=== PATIENT | female | born 1955 | race Caucasian/White ===

== ENCOUNTER 2023-11-11 20:15 | Outpatient (CLI) | payer MEDICARE, SELFPAY | END 2023-11-11 20:16 | disposition home or self-care (01) | PROVIDERS: PCP Family Medicine; Visit Provider Internal Medicine | DX: G47.33 Obstructive sleep apnea (adult) (pediatric) (principal); R09.02 Hypoxemia; G47.30 Sleep apnea, unspecified | CPT/HCPCS: 95811 ==

== ENCOUNTER 2025-01-31 15:08 | Inpatient (IN) | payer MEDICARE, SELFPAY ==
[2025-01-31] VITALS (30 sets, daily range): BP systolic 140–181; BP diastolic 104–145; PULSE 97–141; RESP 10–22; TEMP 36.5–36.7; O2SAT 90–97
[2025-01-31 16:49] LABS: Hematocrit* 42.8 % (33.0-51.0); Hemoglobin* 13.0 gm/dL (12.0-16.0); Immature Granulocytes Abs Auto 0.02 K/uL (0.00-0.30); Immature Granulocytes Pct Auto 0.2 %; Mean Corpuscular HGB Conc 30 gm/dL (32-36); Mean Corpuscular Hemoglobin 29 pg (26-34); Mean Corpuscular Volume 94 fL (80-100); RDW Coefficient of Variation % 14.4 % (11.5-15.5); Red Blood Count* 4.54 m/uL (4.00-5.20); White Blood Count* 8.08 K/uL (4.50-11.00)
[2025-01-31 16:54] LABS: Lymphocytes Absolute Auto 1.10 K/uL (0.90-2.90); Slide Review Reflex No
[2025-01-31] MEDS: LACTATED RINGERS 1000 ML 1,000 ML IV (16:54)
[2025-01-31 17:04] LABS: Chloride* 100 mmol/L (96-114); Potassium* 4.6 mmol/L (3.6-5.1); Sodium* 140 mmol/L (135-149)
--- NOTE | 2025-01-31 17:04 | ED.GENADULT ---
HPI - General Adult General Date Seen: 01/31/25 Chief complaint: Weakness Stated complaint: Erratic heartrate Time Seen by Provider: 01/31/25 15:52 Source: patient Mode of arrival: ambulatory Limitations: no limitations History of Present Illness HPI narrative: Patient is a 69-year-old female with a history of recurrent AFib, diabetes, hyperthyroidism presenting to the emergency department with AFib. She states she has been having intermittent AFib for several years and has had previous ablation is and multiple cardioversions that just do not stick. She is unsure how long she has been in AFib in states he could be over a year but could also be just the past month when she has been having some chest pressure. She states over the past year her AFib presents more as chest pressure. She was seeing her tripe washer for the symptoms today and he sent her to the emergency department. She states her primary care provider increased her metoprolol from 50 to 100 mg b.i.d. last week. She is on warfarin in states she ran out of her warfarin a little over 3 weeks ago. While she did not take it for a few days she had her INR checked there was 1.3. She was restarted on warfarin and few days later her INR is 1.8 in than 10 days ago it was 2.8. Denies is shortness of breath, lightheadedness, dizziness, weakness, numbness. No other concerns noted at this time. She states her metoprolol Related Data Home Medications ?Medication ?Instructions ?Recorded ?Confirmed atorvastatin 40 mg tablet 40 mg PO DAILY 01/31/25 01/31/25 duloxetine 60 mg capsule,delayed 60 mg PO DAILY 01/31/25 01/31/25 release furosemide 20 mg tablet 20 mg PO DAILY 01/31/25 01/31/25 levothyroxine 100 mcg tablet 100 mcg PO DAILY 01/31/25 01/31/25 metformin 1,000 mg tablet 1,000 mg PO BID 01/31/25 01/31/25 metoprolol succinate 100 mg 100 mg PO BID 01/31/25 01/31/25 tablet,extended release 24 hr metoprolol succinate 50 mg 50 mg PO BID 01/31/25 01/31/25 tablet,extended release 24 hr pantoprazole 40 mg tablet,delayed 40 mg PO DAILY 11/18/25 11/18/25 release warfarin 5 mg tablet 5 mg PO DAILY 01/31/25 01/31/25 Allergies Allergy/AdvReac Type Severity Reaction Status Date / Time nickel Allergy Intermediate Verified 01/31/25 15:22 aspirin Allergy Unknown Verified 01/31/25 15:22 Penicillins Allergy Unknown Verified 01/31/25 15:22 Review of Systems Status of ROS: Reports: 10 or more systems reviewed and unremarkable except as noted in History and below Exam Narrative: Exam Narrative: Const: Well-nourished, Well-developed, in no distress Eyes: PERRL, no conjunctival injection, and symmetrical lids HENT: Atraumatic external nose and ears. Moist mucous membranes. Neck: Symmetric, trachea midline, No thyromegaly. CVS: irregular irregular rhythm, No murmurs or gallops. Peripheral pulses 2+ and equal in all extremities RESP: Unlabored respiratory effort. Clear to auscultation bilaterally. GI: Nontender/Nondistended, No rebound or guarding. MSK:Extremities w/o deformity, Normal Active ROM Skin: Warm, Dry. No rashes or lesions. Neuro: Normal Muscle tone, No focal neurological deficits. Psych: Awake, Alert, & Oriented x3. Appropriate mood and affect. Const: Vital Signs, click to edit/add: Vital Signs - 24 hr 01/31/25 15:16 01/31/25 15:23 01/31/25 15:24 Temperature 98 F Pulse Rate 132 H 137 H Pulse Rate [Right Pulse Oximeter] 123 H Respiratory Rate 18 16 11 L Blood Pressure 174/132 H Blood Pressure [Le ft Upper Arm] 174/132 H Pulse Oximetry 97 96 95 Oxygen Delivery Me od Room Air 01/31/25 15:30 01/31/25 15:42 01/31/25 15:45 Temperature Pulse Rate 128 H 141 H 136 H Pulse Rate [Right Pulse Oximeter] Respiratory Rate 22 20 18 Blood Pressure 158/118 H Blood Pressure [Le ft Upper Arm] Pulse Oximetry 94 92 94 Oxygen Delivery Me thod 01/31/25 16:00 01/31/25 16:02 01/31/25 16:15 Temperature Pulse Rate 131 H 127 H 132 H Pulse Rate [Right Pulse Oximeter] Respiratory Rate 13 13 17 Blood Pressure 149/128 H Blood Pressure [Le ft Upper Arm] Pulse Oximetry 96 93 [facility] 01/[facility]/25 16:31 01/31/25 16:45 01/31/25 17:00 Temperature Pulse Rate Pulse Rate [Right Pulse Oximeter] Respiratory Rate 10 L 22 19 Blood Pressure Blood Pressure [Le ft Upper Arm] Pulse Oximetry Oxygen Delivery Me thod 01/31/25 17:02 01/31/25 17:15 01/31/25 17:22 Temperature Pulse Rate Pulse Rate [Right Pulse Oximeter] Respiratory Rate 19 17 22 Blood Pressure 163/128 H 176/131 H Blood Pressure [Le ft Upper Arm] Pulse Oximetry Oxygen Delivery Me thod 01/31/25 17:30 01/31/25 17:42 01/31/25 17:45 Temperature Pulse Rate Pulse Rate [Right Pulse Oximeter] Respiratory Rate 19 13 18 Blood Pressure 181/126 H Blood Pressure [Le ft Upper Arm] Pulse Oximetry 94 Oxygen Delivery Me thod 01/31/25 18:00 01/31/25 18:01 Temperature Pulse Rate Pulse Rate [Right Pulse Oximeter] Respiratory Rate 20 22 Blood Pressure 169/145 H Blood Pressure [Le ft Upper Arm] Pulse Oximetry Oxygen Delivery Me od Course Vital Signs Vital signs: Initial Vital Signs Temperature 98 F 01/31/25 15:16 Temperature Source Temporal Artery Scan 01/31/25 15:16 Pulse Rate 123 H 01/31/25 15:16 Pulse Rhythm Regular, Irregular 01/31/25 15:16 Pulse Strength 3+ Normal 01/31/25 15:16 Respiratory Rate 18 01/31/25 15:16 Blood Pressure 174/132 H 01/31/25 15:16 Blood Pressure Mean 146 H 01/31/25 15:16 Blood Pressure Position Semi-Fowlers 01/31/25 15:16 Pulse Oximetry 97 01/31/25 15:16 Oxygen Delivery Method Room Air 01/31/25 15:16 Vital Signs Temperature 98 F 01/31/25 15:16 Pulse Rate 123 H 01/31/25 15:16 Respiratory Rate 18 01/31/25 15:16 Blood Pressure 174/132 H 01/31/25 15:16 Pulse Oximetry 97 01/31/25 15:16 Oxygen Delivery Method Room Air 01/31/25 15:16 Temperature 98 F 01/31/25 15:16 Pulse Rate 132 H 01/31/25 16:15 Respiratory Rate 22 01/31/25 18:01 Blood Pressure 169/145 H 01/31/25 18:01 Pulse Oximetry 94 01/31/25 17:30 Oxygen Delivery Method Room Air 01/31/25 15:16 Medications Administered Medications: Discontinued Medications Generic Name Dose Route Start Last Admin Trade Name Nallely PRN Reason Stop Dose Admin Lactated Ringer's 1,000 mls @ 1,000 mls/hr 01/31/25 16:21 01/31/25 17:58 Lactated Ringers 1000 Ml IV 01/31/25 17:20 Infused .Q1H ONE Infusion Labetalol HCl 5 mg 01/31/25 17:24 01/31/25 17:31 Labetalol Hcl 5 Mg/Ml Inj IVP 01/31/25 17:25 5 mg ONCE ONE Administration Magnesium Oxide 400 mg 01/31/25 17:15 01/31/25 17:31 Magnesium Oxide 400 Mg Tablet PO 01/31/25 17:16 400 mg ONCE ONE Administration Medical Decision Making MDM Narrative Medical decision making narrative: Patient is a 69-year-old female presenting to emergency department AFib with RVR. Her blood pressure is elevated and he is stable at this time. Unsure how long the symptoms have been going on for about so likely could have been least a month. Will check magnesium, CBC, BMP along with her INR and a TSH. Will give a L of fluids in the meantime to see if hydration helps. Lab work returns with potassium of 4.6. Her magnesium is 1.8. Is recommend to be above to for cardiac arrhythmias. Magnesium replenished. Tried doing a dose of Lopressor which did not help with her heart rate. Her INR is 1.56. She continues to be stable in the emergency department. TSH within normal limits. I spoke to Dr. Wilcox of [facility]. He recommends doing digoxin 500 mcg once followed by a night to 150 mcg of the 6 hour tika and then another 250 mcg at the 12 hour tika for a total of 1000 mcg over 12 hours. Considering she is still in AFib with RVR we will admit her to the hospitalist service. Lab Data Labs: Lab Results 01/31/25 01/31/25 Range/Units 16:33 17:05 WBC 8.08 (4.50-11.00) K/uL RBC 4.54 (4.00-5.20) m/uL Hgb 13.0 (12.0-16.0) gm/dL Hct 42.8 (33.0-51.0) % MCV 94 (80-100) fL MCH 29 (26-34) pg MCHC 30 L (32-36) gm/dL RDW Coeff of Liliana 14.4 (11.5-15.5) % Plt Count 377 (140-440) K/uL Neut % (Auto) 75.4 H (42.0-72.0) % Lymph % (Auto) 14.2 L (20-44) % [place] % (Auto) 7.5 (0.0-11.0) % Eos % (Auto) 2.2 (0.0-7.0) % Baso % (Auto) 0.5 (0.0-3.0) % Neut # (Auto) 6.10 (1.7-7.0) K/uL Lymph # (Auto) 1.10 (0.90-2.90) K/uL [place] # (Auto) 0.60 (0.00-0.90) K/UL Eos # (Auto) 0.18 (0.00-0.50) K/uL Baso # (Auto) 0.04 (0.00-0.30) K/uL Abs Immat Gran (auto) 0.02 (0.00-0.30) K/uL Imm/Tot Granulo (auto) 0.2 % INR 1.56 H (0.91-1.10) Sodium 140 (135-149) mmol/L Potassium 4.6 (3.6-5.1) mmol/L Chloride 100 (96-114) mmol/L Carbon Dioxide 28 (20-32) mmol/L Anion Gap 12 (7-15) mEq/L BUN 23 (7-30) mg/dL Creatinine 1.0 (0.5-1.5) mg/dL Estimated GFR 61 ml/min Glucose 126 H (60-115) mg/dL Calcium 10.8 H (8.4-10.6) mg/dL Magnesium 1.8 (1.5-2.6) mg/dL TSH 1.810 (0.270-4.200) uIU/mL Lab Acknowledgement Test Added ECG Data Attestation: I personally reviewed and interpreted this ECG as follows: Prior ECG tracings: not available for review Interpretation: Atrial fibrillation with a rate of 142 beats per minute, normal axis, normal QTC, normal QRS, no ST or T-wave abnormalities. Critical Care Time Critical Care Time Critical Care Time: Yes Attestation: The patient required my highest level preparedness to intervene emergently and I personally spent this critical care time directly and personally managing the patient. This critical care time included: Obtaining a history; Examining the patient; Pulse oximetry; Ordering and reviewing of studies; Arranging urgent treatment with development of a management plan; Evaluation of patients response to treatment; Frequent reassessment discussions with other providers. This critical care time was performed to assess and manage the high probability of imminent life-threatening deterioration that could result in multiorgan failure. It was exclusive of separate billable procedures and treating other patients and teaching time. Total Critical Care Time in Minutes: 36 Discharge Plan Discharge Clinical Impression: Atrial fibrillation with rapid ventricular response Patient Disposition: Admitted As Inpatient Condition: Stable
[2025-01-31 17:07] LABS: Anion Gap 12 mEq/L (7-15); Blood Urea Nitrogen* 23 mg/dL (7-30); Calcium* 10.8 mg/dL (8.4-10.6); Carbon Dioxide* 28 mmol/L (20-32); Creatinine* 1.0 mg/dL (0.5-1.5); Estimated Glomerular Filt Rate 61 ml/min; Glucose* 126 mg/dL (60-115); INR 1.56 (0.91-1.10); Prothrombin Time 19.7 Seconds
[2025-01-31] MEDS: LABETALOL HCL 5 MG/ML inj IVP (17:31)
[2025-01-31] MEDS: MAGNESIUM OXIDE 400 MG TABLET PO ×2 (17:31→20:33)
[2025-01-31 17:50] LABS: TSH With Reflex to FT4* 1.810 uIU/mL (0.270-4.200)
[2025-01-31] MEDS: DIGOXIN 250 MCG/ML inj 500 MCG IV (19:01)
[2025-01-31] MEDS: WARFARIN 5 MG TABLET 7.5 MG PO (20:30)
[2025-01-31] MEDS: METFORMIN 1,000 MG TABLET 1000 MG PO (20:34)
[2025-01-31] MEDS: VALSARTAN 80 MG TABLET PO (20:34)
[2025-01-31] MEDS: DULOXETINE 30 MG CAPSULE DR 60 MG PO (20:34)
[2025-01-31] MEDS: METOPROLOL SUCCINATE (XL) 100 MG TAB PO (20:34)
[2025-01-31] MEDS: MELATONIN 3 MG TABLET 9 MG PO (20:35)
--- NOTE | 2025-01-31 20:53 | CRLHL7_ITS ---
For Patients: As a result of the Cures Act, medical imaging exams and procedure reports are released immediately into your electronic medical record. You may view this report before your referring provider. If you have questions, please contact your health care provider. INDICATION: Atrial fibrillation with rapid ventricular response, dyspnea TECHNIQUE: Chest radiograph 2 views COMPARISON: None FINDINGS: The sensitivity and specificity of the exam are moderately limited by the patient`s body habitus. Mediastinum: The central pulmonary arteries are near the upper limits of normal in size. Mild to moderate cardiomegaly is noted. Lung: Both lungs are unremarkable in appearance with small lung volumes. No sign of pleural effusion seen. No pneumothorax is identified. Bone and Soft tissue: Unremarkable for age. IMPRESSION: 1. Mild to moderate cardiomegaly is noted. Dictated by Emeka Alejandra MD @ 01/31/2025 10:19:15 PM Dictated by: Emeka Alejandra MD @ 01/31/2025 22:19:19 (Electronically Signed)
[2025-01-31 20:57] LABS: NT Pro B Type NatriureticPept* 9460 pg/mL (See Note)
--- NOTE | 2025-01-31 21:49 | PM.IMHP1 ---
Assessment and Plan Assessment and plan (1) Atrial fibrillation with rapid ventricular response: Status: Acute (2) Hypertension: Problem comment: Significantly elevated blood pressure today. Status: Acute (3) Obstructive sleep apnea hypopnea, severe: Problem comment: Intolerant of CPAP Status: Acute (4) Inadequate anticoagulation: Problem comment: Recently has had subtherapeutic INR on warfarin 5 mg daily Status: Acute (5) Cardiomyopathy: Problem comment: Obtain echocardiogram. Previously preserved ejection fraction. For with prolonged tachycardia may have reduction in ejection fraction. Mild volume overload clinically today Status: Acute Plan 69-year-old female with AFib with RVR. She has been failing outpatient management earlier with ablation and cardioversion and now inadequate rate control with increase metoprolol. Will add in digoxin to metoprolol. Adjust dose of warfarin to optimize stroke prophylaxis. Obtain echo. Continue to monitor and manage heart disease based on clinical course and echocardiogram. Total Time Spent Total Time Spent: Total time spent today is 85 minutes in reviewing outside records, coordination of care and discussing with patient ongoing management of AFib with RVR. Hospitalist- H&P: HPI History of Present Illness Date Seen: 01/31/25 Chief complaint: Erratic heartrate Narrative: Phoebe Farrar is a 69 year old female admitted to the hospital with gradually worsening dyspnea and AFib with RVR. She has a history of paroxysmal AFib. She has had multiple previous failed cardioversions and underwent ablation in November 2023. For at least a month her heart rate has been elevated. Month ago she was at the dentist's office and she thinks that her heart rate was in the 130s at that time. She saw her primary care doctor 4 days ago and had a heart rate of 120. At that time her metoprolol was increased from 50 b.i.d. to 100 b.i.d.. She notes along with this that she has had worsening exertional dyspnea. She has not had chest pain. She cannot feel her racing heart. She does not check her pulse at home. She is on warfarin for stroke prophylaxis. She is unable to take apixaban due to its cost. Her INR has been below the therapeutic range for much of the last 1-2 months. She reports she does reliably remember her medicines though she may have for gotten her warfarin last night. She has not had a fever or other recent illness. Review of Systems Narrative: She reports feeling well except as noted above Medical Decision Making Medical Decision Making Has patient completed a Health Care Directive: Yes [facility] Medical History (Updated 01/31/25 @ 22:30 by Carlos Peace MD) Cardiomyopathy ?I42.9 - Cardiomyopathy, unspecified (ICD-10) Inadequate anticoagulation ?Z51.81 - Encounter for therapeutic drug level monitoring (ICD-10) ?Z79.01 - detention (current) use of anticoagulants (ICD-10) Depression ?F32.A - Depression, unspecified (ICD-10) Diabetes mellitus type 2, controlled ?E11.9 - Type 2 diabetes mellitus without complications (ICD-10) IPMN (intraductal papillary mucinous neoplasm) ?D49.0 - Neoplasm of unspecified behavior of digestive system (ICD-10) Chronic rhinitis ?J31.0 - Chronic rhinitis (ICD-10) Gastroesophageal reflux ?K21.9 - Gastro-esophageal reflux disease without esophagitis (ICD-10) Hypothyroidism ?E03.9 - Hypothyroidism, unspecified (ICD-10) Obstructive sleep apnea hypopnea, severe ?G47.33 - Obstructive sleep apnea (adult) (pediatric) (ICD-10) Obesity ?E66.9 - Obesity, unspecified (ICD-10) Hyperlipidemia ?E78.5 - Hyperlipidemia, unspecified (ICD-10) Irritable bowel syndrome ?K58.9 - Irritable bowel syndrome, unspecified (ICD-10) Hypertension ?I10 - Essential (primary) hypertension (ICD-10) Surgical History (Updated 01/31/25 @ 22:22 by Carlos Peace MD) History of carpal tunnel release of both wrists ?Z98.890 - Other specified postprocedural states (ICD-10) History of colonoscopy ?Z98.890 - Other specified postprocedural states (ICD-10) History of tonsillectomy ?Z90.89 - Acquired absence of other organs (ICD-10) S/P ablation of atrial fibrillation ?Z98.890 - Other specified postprocedural states (ICD-10) ?Z86.79 - Personal history of other diseases of the circulatory system (ICD-10) Family History (Updated 01/31/25 @ 22:23 by Carlos Peace MD) Mother Breast cancer Heart disease Diabetes High blood pressure Father Prostate cancer Diabetes High blood pressure Brother Diabetes Social History (Updated 01/31/25 @ 22:24 by Carlos Peace MD) Narrative: She lives in her own home in [facility] this. She has a friend, Lynne Block, who lives in the same house with her. Lynne is healthcare power of consumer attorney. Code status is DNR. She does not smoke. She does not drink alcohol. What is your current living situation?: I presently have a place to live Problems where you live: no known problems Problems where you live details: NA In the past 12 months, utilities in danger of being shut off: no In past 12 months, lack of transportation kept you from medical appts, meetings, work, or getting things needed for daily living: no In the past 12 mos, have been you worried that your food would run out before you had money to buy more?: never true In the past 12 mos, the food you bought just didn't last and you didn't have money to buy more?: never true Highest level of school completed/degree received: Associate degree: occupational, technical, vocational program Smoking Status: Never smoker Second hand tobacco smoke exposure: No How often do you have a drink containing alcohol: never AUDIT-C Alcohol total score: 0 Non-prescribed substance use: denies use How often does anyone, including family, friends and others, physically hurt you: never How often does anyone, including family, friends and others, insult or talk down to you: never How often does anyone, including family, friends and others, threaten you with harm: never How often does anyone, including family, friends and others, scream or curse at you: never service: No Meds Home Medications and Allergies Home Medications ?Medication ?Instructions ?Recorded ?Confirmed ?Type atorvastatin 40 mg tablet 40 mg PO DAILY 01/31/25 01/31/25 History duloxetine 60 mg capsule,delayed 60 mg PO DAILY 01/31/25 01/31/25 History release furosemide 20 mg tablet 20 mg PO DAILY 01/31/25 01/31/25 History levothyroxine 100 mcg tablet 100 mcg PO DAILY 01/31/25 01/31/25 History metformin 1,000 mg tablet 1,000 mg PO BID 01/31/25 01/31/25 History metoprolol succinate 100 mg 100 mg PO BID 01/31/25 01/31/25 History tablet,extended release 24 hr metoprolol succinate 50 mg 50 mg PO BID 01/31/25 01/31/25 History tablet,extended release 24 hr pantoprazole 40 mg tablet,delayed 40 mg PO DAILY 01/31/25 01/31/25 History release warfarin 5 mg tablet 5 mg PO DAILY 01/31/25 01/31/25 History Allergies Allergy/AdvReac Type Severity Reaction Status Date / Time nickel Allergy Intermediate Verified 01/31/25 15:22 aspirin Allergy Unknown Verified 01/31/25 15:22 Penicillins Allergy Unknown Verified 01/31/25 15:22 Exam Narrative: Exam Narrative: She is alert and appears in no distress. Eyes normal. Oropharynx with very small airway. No facial asymmetry. Neck is supple without mass or adenopathy. No jugular venous distension. Respirations are clear to auscultation with a rare basilar crackle. Cardiovascular: S1, S2, irregular tachycardia. Abdomen is soft. Bowel sounds are present there is no mass. External genitalia normal. Extremities with 1+ edema bilaterally. Intact pedal pulses. She moves all 4 extremities well. No rash. Const: Vital Signs, click to edit/add: Vital Signs - 24 hr 01/31/25 15:16 01/31/25 15:23 01/31/25 15:24 Temperature 98 F Pulse Rate 132 H 137 H Pulse Rate [Right Pulse Oximeter] 123 H Pulse Rate [Right Radial] Respiratory Rate 18 16 11 L Blood Pressure 174/132 H Blood Pressure [Le ft Upper Arm] 174/132 H Blood Pressure [Ri ght Arm] Pulse Oximetry 97 96 95 Oxygen Delivery Me thod Room Air 01/31/25 15:30 01/31/25 15:42 01/31/25 15:45 Temperature Pulse Rate 128 H 141 H 136 H Pulse Rate [Right Pulse Oximeter] Pulse Rate [Right Radial] Respiratory Rate 22 20 18 Blood Pressure 158/118 H Blood Pressure [Le ft Upper Arm] Blood Pressure [Ri ght Arm] Pulse Oximetry 94 92 94 Oxygen Delivery Me thod 01/31/25 16:00 01/31/25 16:02 01/31/25 16:15 Temperature Pulse Rate 131 H 127 H 132 H Pulse Rate [Right Pulse Oximeter] Pulse Rate [Right Radial] Respiratory Rate 13 13 17 Blood Pressure 149/128 H Blood Pressure [Le ft Upper Arm] Blood Pressure [Ri ght Arm] Pulse Oximetry 96 93 93 Oxygen Delivery Me thod 01/31/25 16:31 01/31/25 16:45 01/31/25 17:00 Temperature Pulse Rate Pulse Rate [Right Pulse Oximeter] Pulse Rate [Right Radial] Respiratory Rate 10 L 22 19 Blood Pressure Blood Pressure [Le ft Upper Arm] Blood Pressure [Ri ght Arm] Pulse Oximetry Oxygen Delivery Me thod 01/31/25 17:02 01/31/25 17:15 01/31/25 17:22 Temperature Pulse Rate Pulse Rate [Right Pulse Oximeter] Pulse Rate [Right Radial] Respiratory Rate 19 17 22 Blood Pressure 163/128 H 176/131 H Blood Pressure [Le ft Upper Arm] Blood Pressure [Ri ght Arm] Pulse Oximetry Oxygen Delivery Me thod 01/31/25 17:30 01/31/25 17:42 01/31/25 17:45 Temperature Pulse Rate Pulse Rate [Right Pulse Oximeter] Pulse Rate [Right Radial] Respiratory Rate 19 13 18 Blood Pressure 181/126 H Blood Pressure [Le ft Upper Arm] Blood Pressure [Ri ght Arm] Pulse Oximetry 94 Oxygen Delivery Me thod 01/31/25 18:00 01/31/25 18:01 01/31/25 18:02 Temperature Pulse Rate Pulse Rate [Right Pulse Oximeter] Pulse Rate [Right Radial] Respiratory Rate 20 22 19 Blood Pressure 169/145 H Blood Pressure [Le ft Upper Arm] Blood Pressure [Ri ght Arm] Pulse Oximetry Oxygen Delivery Me thod 01/31/25 18:15 01/31/25 18:23 01/31/25 19:01 Temperature Pulse Rate 140 H Pulse Rate [Right Pulse Oximeter] Pulse Rate [Right Radial] Respiratory Rate 17 18 Blood Pressure 158/125 H Blood Pressure [Le ft Upper Arm] Blood Pressure [Ri ght Arm] Pulse Oximetry 94 Oxygen Delivery Me thod 01/31/25 19:49 01/31/25 19:50 01/31/25 20:00 Temperature 98.1 F 98.1 F Pulse Rate Pulse Rate [Right Pulse Oximeter] Pulse Rate [Right Radial] 120 H 120 H Respiratory Rate 16 16 16 Blood Pressure Blood Pressure [Le ft Upper Arm] Blood Pressure [Ri ght Arm] 152/112 H 152/112 H Pulse Oximetry 93 93 93 Oxygen Delivery Me thod Room Air Room Air Room Air Documenting provider has reviewed patient's vital signs: yes Hospitalist - H&P: Result Labs Labs: Short CBC 01/31/25 Range/Units 16:33 WBC 8.08 (4.50-11.00) K/uL Hgb 13.0 (12.0-16.0) gm/dL Hct 42.8 (33.0-51.0) % Plt Count 377 (140-440) K/uL BMP 01/31/25 16:33 Sodium 140 Potassium 4.6 Chloride 100 Carbon Dioxide 28 BUN 23 Creatinine 1.0 Glucose 126 H Calcium 10.8 H Cardiac Enzymes 01/31/25 Range/Units 16:33 Troponin I 0.01 (0.01-0.04) ng/mL Imaging Chest x-ray: Radiologist's impression: INDICATION: Atrial fibrillation with rapid ventricular response, dyspnea TECHNIQUE: Chest radiograph 2 views COMPARISON: None FINDINGS: The sensitivity and specificity of the exam are moderately limited by the patient`s body habitus. Mediastinum: The central pulmonary arteries are near the upper limits of normal in size. Mild to moderate cardiomegaly is noted. Lung: Both lungs are unremarkable in appearance with small lung volumes. No sign of pleural effusion seen. No pneumothorax is identified. Bone and Soft tissue: Unremarkable for age. IMPRESSION: 1. Mild to moderate cardiomegaly is noted.
[2025-02-01] VITALS (10 sets, daily range): BP systolic 165–185; BP diastolic 95–120; PULSE 75–107; RESP 18; TEMP 36.2–36.9; O2SAT 91–97
[2025-02-01] MEDS: DIGOXIN 250 MCG/ML inj IV (00:45)
--- NOTE | 2025-02-01 04:17 | PC.NURSE ---
Pt rested well this night. Ambulating IND. HR came down below 100. BP remains elevated. Pt no longer SOB with exertion.
[2025-02-01] MEDS: LEVOTHYROXINE 100 MCG TABLET PO (06:03)
[2025-02-01] MEDS: OMEPRAZOLE 20 MG CAPSULE DR PO ×2 (06:04→08:38)
[2025-02-01 06:37] LABS: Chloride* 105 mmol/L (96-114); Potassium* 4.4 mmol/L (3.6-5.1); Sodium* 138 mmol/L (135-149)
[2025-02-01 06:40] LABS: Anion Gap 5 mEq/L (7-15); Blood Urea Nitrogen* 23 mg/dL (7-30); Carbon Dioxide* 28 mmol/L (20-32); Creatinine* 1.0 mg/dL (0.5-1.5); Estimated Glomerular Filt Rate 61 ml/min
[2025-02-01 06:41] LABS: Calcium* 10.1 mg/dL (8.4-10.6); Glucose* 122 mg/dL (60-115)
[2025-02-01 07:08] LABS: INR 1.50 (0.91-1.10); Prothrombin Time 19.1 Seconds
[2025-02-01] MEDS: METFORMIN 1,000 MG TABLET 1000 MG PO ×2 (08:35→21:00)
[2025-02-01] MEDS: ATORVASTATIN CALCIUM 40 MG TABLET PO (08:35)
[2025-02-01] MEDS: METOPROLOL SUCCINATE (XL) 100 MG TAB PO ×2 (08:35→21:00)
[2025-02-01] MEDS: SPIRONOLACTONE 25 MG TABLET PO (08:36)
[2025-02-01] MEDS: DIGOXIN 250 MCG TABLET PO (08:36)
[2025-02-01] MEDS: SODIUM CHLORIDE 0.9 % (FLUSH) 10 ML SYRINGE 5 ML IVF ×2 (08:38→21:01)
[2025-02-01] MEDS: VALSARTAN 80 MG TABLET PO (08:40)
--- NOTE | 2025-02-01 14:25 | PC.NURSE ---
Pt is doing well today. Pleasant to care for. This morning pt was hypertensive, heart rate was controlled; provider was notified and orders were placed. Blood pressure has been improving throughout the shift. Heart rate remains controlled, 80-90's, continues to be in a-fib. Pt went for a walk in the halls and heart rate was 90-110 during walk. Pt states she feels as though as is at her baseline. Pt denies chest pain, SOB, headache, lightheadedness or dizziness. Pt is tolerating oral intake and ambulating in room independently.
[2025-02-01] MEDS: WARFARIN 5 MG TABLET PO (17:06)
--- NOTE | 2025-02-01 17:23 | P.IMPN_ITS ---
Assessment and Plan Assessment and plan (1) Atrial fibrillation with rapid ventricular response: Problem comment: -rate control with digoxin initiation his brought rate down to less than 100 -continue metoprolol at the increased dose of 100 b.i.d. -continue anticoagulation with warfarin -Zio patch at discharge -follow-up with PCP to ensure rate control and adequate blood pressure control Status: Acute (2) Hypertension: Problem comment: Significantly elevated blood pressure at admission Initiated valsartan 80 mg b.i.d. this was converted to 160 mg q.day on 02/02. Status: Acute (3) Obstructive sleep apnea hypopnea, severe: Problem comment: Intolerant of CPAP Status: Acute (4) Inadequate anticoagulation: Problem comment: Recently has had subtherapeutic INR on warfarin 5 mg daily - pharm D has adj usted her warfarin dosing accordingly Status: Acute (5) Cardiomyopathy: Problem comment: -echo shows EF of 50-55%, concentric LVH. Status: Acute Subjective Date Seen: 02/01/25 Interval history: Daily Progress Note - Hospital Medicine Day #: 2 CC: AFib with RVR 24 HOUR UPDATE: The patient is responded with the digoxin infusion load. Her heart rate did come down under 100. Her blood pressure has been quite elevated. We have been trying different medicines to help bring this down. She has trialed valsartan at 80 mg b.i.d., spironolactone 25 mg daily in addition to an increased dose of metoprolol 100 b.i.d.. Echo this afternoon revealed LVH, concentric. Low normal EF of 50-55% and trace global valvular disease. Her INR continues to be subtherapeutic. We have adjusted her warfarin. Her glucose is 120s. Her chemistries and CBC are unremarkable. Her troponin is undetectable. Her BNP is quite elevated at 9400. He has a normal thyroid. And a normal A1c. Objective: Alert, interactive. Ambulatory. Vitals: see above Lungs: Clear. Cardiac: S1S2. Irregularly irregular. Disposition/Potential discharge - Home with a Zio patch in the morning Today I spent 50 minutes seeing the patient, reviewing Expanse and EPIC notes/diagnostics, discussing the care plan with our care time that includes social work, PT/OT, pharmacy, RT, halfway and documenting my impressions and plan in the medical record. Exam Const: Vital Signs, click to edit/add: Vital Signs - 24 hr 01/31/25 17:30 01/31/25 17:42 01/31/25 17:45 Temperature Pulse Rate Pulse Rate [Right Radial] Respiratory Rate 19 13 18 Blood Pressure 181/126 H Blood Pressure [Ri ght Arm] Pulse Oximetry 94 Oxygen Delivery Me thod 01/31/25 18:00 01/31/25 18:01 01/31/25 18:02 Temperature Pulse Rate Pulse Rate [Right Radial] Respiratory Rate 20 22 19 Blood Pressure 169/145 H Blood Pressure [Ri ght Arm] Pulse Oximetry Oxygen Delivery Me thod 01/31/25 18:15 01/31/25 18:23 01/31/25 19:01 Temperature Pulse Rate 140 H Pulse Rate [Right Radial] Respiratory Rate 17 18 Blood Pressure 158/125 H Blood Pressure [Ri ght Arm] Pulse Oximetry 94 Oxygen Delivery Me thod 01/31/25 19:49 01/31/25 19:50 01/31/25 20:00 Temperature 98.1 F 98.1 F Pulse Rate Pulse Rate [Right Radial] 120 H 120 H Respiratory Rate 16 16 16 Blood Pressure Blood Pressure [Ri ght Arm] 152/112 H 152/112 H Pulse Oximetry 93 93 93 Oxygen Delivery Me thod Room Air Room Air Room Air 01/31/25 22:10 01/31/25 22:15 01/31/25 22:16 Temperature 97.7 F Pulse Rate 106 H Pulse Rate [Right Radial] 97 97 Respiratory Rate 16 16 Blood Pressure Blood Pressure [Ri ght Arm] 140/104 H Pulse Oximetry 90 Oxygen Delivery Me thod Room Air 02/01/25 00:45 02/01/25 01:32 02/01/25 07:00 Temperature 97.9 F Pulse Rate 107 H 75 Pulse Rate [Right Radial] 94 Respiratory Rate 18 Blood Pressure Blood Pressure [Ri ght Arm] 168/119 H Pulse Oximetry 91 Oxygen Delivery Me thod Room Air 02/01/25 07:25 02/01/25 07:35 02/01/25 08:36 Temperature 97.1 F L Pulse Rate 86 Pulse Rate [Right Radial] 90 90 Respiratory Rate 18 18 Blood Pressure Blood Pressure [Ri ght Arm] 185/120 H 171/105 H Pulse Oximetry Oxygen Delivery Me thod 02/01/25 11:00 02/01/25 15:00 02/01/25 15:00 Temperature 97.2 F L 97.6 F Pulse Rate 95 Pulse Rate [Right Radial] 88 89 Respiratory Rate 18 18 Blood Pressure Blood Pressure [Ri ght Arm] 166/95 H 165/111 H Pulse Oximetry 92 92 Oxygen Delivery Me thod Room Air Room Air 02/01/25 15:00 Temperature Pulse Rate Pulse Rate [Right Radial] 89 Respiratory Rate 18 Blood Pressure Blood Pressure [Ri ght Arm] Pulse Oximetry Oxygen Delivery Me thod Labs Labs: Laboratory Results - last 24 hr 01/31/25 01/31/25 02/01/25 16:33 19:48 05:53 INR 1.50 H Sodium 138 Potassium 4.4 Chloride 105 Carbon Dioxide 28 Anion Gap 5 L BUN 23 Creatinine 1.0 Estimated GFR 61 Glucose 122 H Calcium 10.1 Troponin I 0.01 0.01 NT-Pro-B Natriuret Pep 9460 H TSH 1.810 Lab Acknowledgement Test Added 02/01/25 07:23 INR Sodium Potassium Chloride Carbon Dioxide Anion Gap BUN Creatinine Estimated GFR Glucose Calcium Troponin I NT-Pro-B Natriuret Pep TSH Lab Acknowledgement Test Added
[2025-02-01] MEDS: MELATONIN 3 MG TABLET 9 MG PO (21:00)
[2025-02-01] MEDS: DULOXETINE 30 MG CAPSULE DR 60 MG PO (21:01)
[2025-02-01] MEDS: MAGNESIUM OXIDE 400 MG TABLET PO (21:01)
--- NOTE | 2025-02-01 23:02 | PC.NURSE ---
End of Shift: Patient pleasant and cooperative. Afebrile. Denies pain. Tele showing a-fib with heart rate in the 80s-90s. BP remains elevated and MD aware, see vital signs. Up independently. Tolerating regular diet with no nausea.
[2025-02-02 02:04] VITALS: BP 134/87; PULSE 85; RESP 18; TEMP 36.3; O2SAT 97
--- NOTE | 2025-02-02 05:11 | PC.NURSE ---
Patient Independent in room, Tele afib. Patient incontinent of urine, skin care completed, bed and linen changed and barrier cream applied. PIV patent.
[2025-02-02] MEDS: LEVOTHYROXINE 100 MCG TABLET PO (06:48)
[2025-02-02] MEDS: OMEPRAZOLE 20 MG CAPSULE DR 40 MG PO (06:49)
[2025-02-02 07:00] VITALS: BP 161/126; RESP 18; TEMP 36.2; O2SAT 93
[2025-02-02 07:01] LABS: INR 1.63 (0.91-1.10); Prothrombin Time 20.3 Seconds
[2025-02-02 07:31] VITALS: PULSE 73
[2025-02-02] MEDS: DIGOXIN 125 MCG TABLET PO (07:31)
[2025-02-02] MEDS: VALSARTAN 80 MG TABLET 160 MG PO (07:32)
--- NOTE | 2025-02-02 08:49 | PC.NURSE ---
Nursing Care Hours: [id number] Pt dressed and VS taken. HTN both systolic and diastolic. No headache or SOB. Zio patch applied by previous nurse. Emergency Services Dispatcher activated device and reviewed instructions with pt. Reviewed discharge instructions including to make appt for 2 weeks after mailing the zio device and recording BP and pulse numbers. IV removed. Pt wheeled out to friend vehicle in stable condition.
--- NOTE | 2025-02-02 13:19 | PM.DS1 ---
DS: Providers Provider Date Seen: 02/02/25 Date of admission: 01/31/25 18:43 Primary care physician: Jake Diana MD Admitting Clinician: Carlos Peace MD Attending Physician on discharge: [facility] Date of Discharge: 02/02/25 DS: Diagnosis Discharge Diagnosis (1) Atrial fibrillation with rapid ventricular response: Status: Acute Problem details: -rate control with digoxin initiation his brought rate down to less than 100 -continue metoprolol at the increased dose of 100 b.i.d. -continue anticoagulation with warfarin -Zio patch at discharge -follow-up with PCP to ensure rate control and adequate blood pressure control (2) Inadequate anticoagulation: Status: Acute Problem details: Recently has had subtherapeutic INR on warfarin 5 mg daily - pharm D has adjusted her warfarin dosing accordingly (3) Hypertension: Status: Acute Problem details: Significantly elevated blood pressure at admission Changed valsartan 80 mg b.i.d. to 160 mg q.day on 02/02. (4) Cardiomyopathy: Status: Acute Problem details: -echo shows EF of 50-55%, concentric LVH. (5) Obstructive sleep apnea hypopnea, severe: Status: Acute Problem details: Intolerant of CPAP DS: Summary Hospital Course Hospital Course: BRIEF HOSPITAL COURSE: Patient was admitted for 3 days. Synopsis of acute inpatient issues are outlined above. Chronic medical conditions with notable findings outlined above. Eileen Sandhu was admitted for rate control before her chronic are atrial fibrillation. She has been toward cardiac ablation, titration of metoprolol without significant relief. She was admitted on January 31 and had IV digoxin load. This was quite effective. And her rate within 24 hours with down to under 100. Her troponin was negative, her echo was stable. Was quite hypertensive. We continued the metoprolol at the same dose of 100 mg b.i.d., we change the valsartan from 80 b.i.d. to 160 q.day. however she may need further outpatient management. She was discharged with a heart rate of 73. She felt much better. DISCHARGE MEDICATIONS: See Reconciled list - SIGNIFICANT CHANGES: Daily digoxin at 125 mcg daily Valsartan out 160 mg q.a.m. Specific instructions to the patient and follow-up are outlined below. REVIEW OF SYSTEMS No new chest pain or dyspnea Pain controlled No voiding difficulties Tolerating diet challenge PHYSICAL EXAM: CONSTITUTIONAL: Conversive, good historian. A/O. Knows setting and context. GENERAL: Well-developed and above ideal body weight, in no respiratory distress. VITAL SIGNS: see record. HEENT: Sclerae are anicteric. No petechiae. CARDIAC: rhythm is regular. There is no S3 or rub. No harsh murmurs. Extremities show trace edema with symmetrical pulses. PULM: good air entry with no wheeze. NEURO: Speech is fluent. A brief neurologic exam is negative. SKIN: No rashes, petechiae, concerning changes PSYCHIATRIC: Euthymic. DISPOSITION: Home with friends Time spent on discharge 37 minutes. Status at Discharge Functional status at discharge: uses cane/walker Overall status at discharge: patient is progressing back to baseline Time Spent with Patient Time attestation: Total time spent providing and/or coordinating discharge services: Time spent: Greater than 30 minutes Exam Const: Vital Signs, click to edit/add: Vital Signs - 24 hr 02/01/25 15:00 02/01/25 15:00 02/01/25 15:00 Temperature 97.6 F Pulse Rate 95 Pulse Rate [Right Radial] 89 89 Respiratory Rate 18 18 Blood Pressure [Ri ght Arm] 165/111 H Pulse Oximetry 92 Oxygen Delivery Me thod Room Air 02/01/25 19:00 02/01/25 23:00 02/01/25 23:00 Temperature 98.5 F Pulse Rate 95 Pulse Rate [Right Radial] 99 99 Respiratory Rate 18 18 Blood Pressure [Ri ght Arm] 166/116 H Pulse Oximetry 93 Oxygen Delivery Me thod Room Air 02/01/25 23:00 02/02/25 02:04 02/02/25 07:00 Temperature 97.4 F L 97.4 F L 97.2 F L Pulse Rate Pulse Rate [Right Radial] 82 85 Respiratory Rate 18 18 18 Blood Pressure [Ri ght Arm] 167/97 H 134/87 161/126 H Pulse Oximetry 97 97 93 Oxygen Delivery Me thod Room Air Room Air Room Air 02/02/25 07:31 Temperature Pulse Rate 73 Pulse Rate [Right Radial] Respiratory Rate Blood Pressure [Ri ght Arm] Pulse Oximetry Oxygen Delivery Me thod DS: Data Data Completed and Pending Labs on day of discharge: Labs from last 24 hours 02/02/25 06:10 INR 1.63 H Discharge Plan Discharge Disposition: Home, Self-Care Date of Admission: 01/31/25 18:43 Attending Provider on Discharge: Ria Gutierrez Primary Care Provider: Jake Diana Condition: Stable Anticipated Discharge Date/Time: 02/01/25 17:00 Discharge Medications: New digoxin 125 mcg (0.125 mg) Tablet 125 mcg PO DAILY Qty: 30 0RF valsartan 80 mg Tablet 160 mg PO DAILY Qty: 60 0RF Continued atorvastatin 40 mg tablet 40 mg PO DAILY metoprolol succinate 100 mg tablet extended release 24 hr 100 mg PO BID levothyroxine 100 mcg tablet 100 mcg PO DAILY pantoprazole 40 mg tablet,delayed release (DR/EC) 40 mg PO DAILY metformin 1,000 mg tablet 1,000 mg PO BID warfarin 5 mg tablet 5 mg PO DAILY furosemide 20 mg tablet 20 mg PO DAILY duloxetine 60 mg capsule,delayed release(DR/EC) 60 mg PO DAILY Discontinued metoprolol succinate 50 mg tablet extended release 24 hr 50 mg PO BID Discharge Orders: Discharge Order (Routine); Ordered 02/02/25 Ordered By: Carlos Peace Patient Education: Metoprolol (By mouth), Digoxin (By mouth), Warfarin (By mouth), Valsartan (By mouth), A-fib (Atrial Fibrillation) (DC), Chronic Hypertension (DC) Additional Instructions: You will see Dr. Diana in two weeks after your Zio Patch has been returned. Monitor your pulse - Your two meds for the pulse is the higher dose of metoprolol (100mg twice daily) and digoxin (125mcg daily) Your blood pressure is now being treated with Valsartan and Metoprolol. If you can measure once a day and write it down with your pulse for Dr. Diana - that would be great. Activity Level: Activity as Tolerated Discharge Diet: Heart Healthy (2 gm sodium, low fat) Follow Up Appointments: Jake Diana MD [Primary Care Provider, Family Practice] - 02/15/25 11:45 am Referral Note: Forms: [facility] Instructions
== END 2025-02-02 08:00 | disposition home or self-care (01) | DRG 310 ==
LOC: ED 18:19 → MEDSURG 02-01 17:01
PROVIDERS: Family Medicine; Admitting Provider Family Medicine; Emergency Provider Student in an Organized Health Care Education/Training Program; PCP Family Medicine; Visit Provider Family Medicine
DX: I48.91 Unspecified atrial fibrillation (principal); I10 Essential (primary) hypertension; I42.9 Cardiomyopathy, unspecified; G47.33 Obstructive sleep apnea (adult) (pediatric); R79.89 Other specified abnormal findings of blood chemistry; E11.9 Type 2 diabetes mellitus without complications; E03.9 Hypothyroidism, unspecified; K21.9 Gastro-esophageal reflux disease without esophagitis; E78.5 Hyperlipidemia, unspecified; Z79.01 Long term (current) use of anticoagulants; Z79.899 Other long term (current) drug therapy; Z88.0 Allergy status to penicillin; Z88.6 Allergy status to analgesic agent; Z79.84 Long term (current) use of oral hypoglycemic drugs
CPT/HCPCS: 36415; 71046; 80048; 83735; 83880; 84443; 84484; 85025; 85610; 93005; 93246; 93306; 96361; 96374; 99285; 99291; A9270; J1160; J7120